=== PATIENT | female | born 1950 ===

== ENCOUNTER 2023-05-24 11:30 | Inpatient (IN) | payer OTHER ==
[~2023-05-24] VITALS: Ht 160 cm; Wt 70.3 kg
[2023-05-24] MEDS ORDERED: LOSARTAN-HCTZ1 EAC1 PO (14:47)
[2023-05-24] MEDS ORDERED: MELATONIN10 MG PO (14:48)
[2023-05-30] MEDS ORDERED: ROSUVASTATIN CAL5 MG (09:00)
[2023-05-30] MEDS ORDERED: NAPROXEN500 MG (09:01)
[2023-05-30] MEDS ORDERED: PANTOPRAZOLE SO40 MG (09:01)
[2023-05-30] MEDS ORDERED: FAMOTIDINE40 MG (09:01)
== END 2023-05-30 23:13 | disposition home or self-care (01) | DRG 329 ==
LOC: O/R 05-27 05:12 → SURH 05-27 07:00 → ICU 05-27 21:09 → SURG 05-29 13:56
PROVIDERS: ADMIT Colon & Rectal Surgery; ATTEND Colon & Rectal Surgery
PROC: 0DBP4ZZ Excision of Rectum, Percutaneous Endoscopic Approach (ICD-10-PCS; 2023-05-27)
PROC: 0D9W4ZZ Drainage of Peritoneum, Percutaneous Endoscopic Approach (ICD-10-PCS; 2023-05-27)
PROC: 0DJD8ZZ Inspection of Lower Intestinal Tract, Via Natural or Artificial Opening Endoscopic (ICD-10-PCS; 2023-05-27)
PROC: 5A1935Z Respiratory Ventilation, Less than 24 Consecutive Hours (ICD-10-PCS; 2023-05-27)
PROC: 0BH17EZ Insertion of Endotracheal Airway into Trachea, Via Natural or Artificial Opening (ICD-10-PCS; 2023-05-27)
PROC: 4A12X4Z Monitoring of Cardiac Electrical Activity, External Approach (ICD-10-PCS; 2023-05-27)
PROC: 0D9670Z Drainage of Stomach with Drainage Device, Via Natural or Artificial Opening (ICD-10-PCS; 2023-05-27)
PROC: 0DTN4ZZ Resection of Sigmoid Colon, Percutaneous Endoscopic Approach (ICD-10-PCS; principal; 2023-05-27 07:00)
DX: K57.20 Diverticulitis of large intestine with perforation and abscess without bleeding (principal); J95.821 Acute postprocedural respiratory failure; K65.1 Peritoneal abscess; K65.8 Other peritonitis; N17.8 Other acute kidney failure; K56.690 Other partial intestinal obstruction; N99.0 Postprocedural (acute) (chronic) kidney failure; E87.6 Hypokalemia; I12.9 Hypertensive chronic kidney disease with stage 1 through stage 4 chronic kidney disease, or unspecified chronic kidney disease; N18.9 Chronic kidney disease, unspecified; R10.32 Left lower quadrant pain